=== PATIENT | female | born 1960 | race African-American/Black ===

== ENCOUNTER 2024-05-09 09:30 | Emergency (ER) | payer MEDICARE, OTHER ==
[~2024-05-09] VITALS: Ht 167.6 cm; Wt 55.0 kg
[2024-05-09 09:34] VITALS: O2SAT 98
[2024-05-09 10:05] LABS: BASOPHILS % 0.5 % (0.0-2.0); EOSINOPHILS % 2.7 % (0.0-5.0); HEMATOCRIT. 40.2 % (36.0-48.0); HEMOGLOBIN. 13.5 g/dL (12.0-16.0); LYMPHOCYTES % 19.4 % (20.0-50.0); MEAN CORPUSCULAR HEMOGLOBIN 31.1 pg (28.0-32.0); MEAN CORPUSCULAR HGB CONC 33.7 g/dL (31.0-37.0); MEAN CORPUSCULAR VOLUME 92.2 fL (81.0-99.0); MEAN PLATELET VOLUME 7.8 fl (7.4-10.4); MONOCYTES % 7.4 % (2.0-8.0); PLATELET 227 x1000/uL (130-400); RED BLOOD CELL COUNT 4.36 mill/uL (4.2-5.4); RED CELL DISTRIBUTION WIDTH 13.8 % (11.6-14.6); WHITE BLOOD COUNT 7.5 x1000/uL (4.5-11.0)
[2024-05-09 10:12] LABS: CHLORIDE 109 mEq/L (98-107); POTASSIUM 3.4 mEq/L (3.5-5.1); SODIUM 143 mEq/L (136-145)
[2024-05-09 10:13] LABS: CALCIUM 9.5 mg/dL (8.7-10.4); CARBON DIOXIDE 28 mEq/L (21-32)
[2024-05-09 10:18] LABS: CREATININE 0.8 mg/dL (0.6-1.0); GLUCOSE 126 mg/dL (70-105); UREA NITROGEN BLOOD 18 mg/dL (9-23)
[2024-05-09 10:22] LABS: TROPONIN I HIGH SENSITIVITY < 4 ng/L (3.0-34)
[2024-05-09] MEDS: ATROPINE SULFATE 1MG/ML VIAL IV ONE (13:18)
[2024-05-09 14:12] VITALS: BP 130/66; PULSE 60; RESP 16; TEMP 98
== END 2024-05-09 14:20 | disposition short-term general hospital (02) ==
LOC: ER 09:30 → EDBEDREQTM 12:07 → EDBEDREQ 12:07 → CANBEDREQ 14:15 → ER 14:20
DX: R00.1 Bradycardia, unspecified (principal); I10 Essential (primary) hypertension; I69.354 Hemiplegia and hemiparesis following cerebral infarction affecting left non-dominant side; Z20.822 Contact with and (suspected) exposure to COVID-19
CPT/HCPCS: 80048; 85025; 84484; 36415; 71045; 96374; 99285; 87426; J0461; Z7610 ×2

== ENCOUNTER 2024-05-14 18:54 | Emergency (ER) | payer MEDICARE, OTHER ==
[~2024-05-14] VITALS: Ht 167.6 cm; Wt 77.0 kg
[2024-05-14 18:56] VITALS: O2SAT 98
[2024-05-14 19:33] LABS: BASOPHILS % 0.8 % (0.0-2.0); EOSINOPHILS % 2.7 % (0.0-5.0); HEMATOCRIT. 39.4 % (36.0-48.0); HEMOGLOBIN. 13.2 g/dL (12.0-16.0); MEAN CORPUSCULAR HEMOGLOBIN 30.6 pg (28.0-32.0); MEAN CORPUSCULAR HGB CONC 33.4 g/dL (31.0-37.0); MEAN CORPUSCULAR VOLUME 91.4 fL (81.0-99.0); MONOCYTES % 7.8 % (2.0-8.0); NEUTROPHILS % 58.7 % (40.0-76.0); PLATELET 253 x1000/uL (130-400); PROTHROMBIN TIME 10.9 sec (9.6-11.0); RED BLOOD CELL COUNT 4.31 mill/uL (4.2-5.4); RED CELL DISTRIBUTION WIDTH 13.8 % (11.6-14.6); WHITE BLOOD COUNT 8.9 x1000/uL (4.5-11.0)
[2024-05-14 19:40] LABS: CHLORIDE 102 mEq/L (98-107); POTASSIUM 3.7 mEq/L (3.5-5.1); SODIUM 140 mEq/L (136-145)
[2024-05-14 19:41] LABS: CALCIUM 9.4 mg/dL (8.7-10.4); CARBON DIOXIDE 28 mEq/L (21-32)
[2024-05-14 19:44] LABS: TROPONIN I HIGH SENSITIVITY 9 ng/L (3.0-34)
[2024-05-14 20:42] LABS: CREATININE 0.8 mg/dL (0.6-1.0); ETHANOL BLOOD < 10 mg/dL (<10); GLUCOSE 80 mg/dL (70-105); UREA NITROGEN BLOOD 15 mg/dL (9-23)
[2024-05-14 21:50] VITALS: BP 131/69; PULSE 60; RESP 12
[2024-05-14] MEDS ORDERED: IOHEXOL-350 100 ML BOTTLE ONE (23:09)
== END 2024-05-14 22:32 | disposition short-term general hospital (02) ==
LOC: ER 18:54 → EDBEDREQ 20:41 → EDBEDREQTM 20:41 → ER 22:32
DX: J96.01 Acute respiratory failure with hypoxia (principal); G93.40 Encephalopathy, unspecified; I10 Essential (primary) hypertension; Z86.73 Personal history of transient ischemic attack (TIA), and cerebral infarction without residual deficits; R56.9 Unspecified convulsions
CPT/HCPCS: 80048; 80320; 83880; 85025; 85379; 85610; 84484; 36415; 71045; 70496; 70498; 70450; 93005; 99291; Q9967; G0480

== ENCOUNTER 2024-06-14 03:49 | Emergency (ER) | payer MEDICARE, OTHER ==
[~2024-06-14] VITALS: Ht 167.6 cm; Wt 75.0 kg
[2024-06-14 03:54] VITALS: O2SAT 95
[2024-06-14 04:15] LABS: BASOPHILS % 0.4 % (0.0-2.0); EOSINOPHILS % 1.9 % (0.0-5.0); HEMATOCRIT. 38.2 % (36.0-48.0); HEMOGLOBIN. 12.8 g/dL (12.0-16.0); LYMPHOCYTES % 32.4 % (20.0-50.0); MEAN CORPUSCULAR HEMOGLOBIN 31.2 pg (28.0-32.0); MEAN CORPUSCULAR HGB CONC 33.6 g/dL (31.0-37.0); MEAN CORPUSCULAR VOLUME 92.9 fL (81.0-99.0); MEAN PLATELET VOLUME 7.6 fl (7.4-10.4); MONOCYTES % 9.8 % (2.0-8.0); NEUTROPHILS % 55.5 % (40.0-76.0); PLATELET 219 x1000/uL (130-400); RED BLOOD CELL COUNT 4.11 mill/uL (4.2-5.4); RED CELL DISTRIBUTION WIDTH 14.5 % (11.6-14.6)
[2024-06-14 04:22] LABS: CHLORIDE 107 mEq/L (98-107); POTASSIUM 3.5 mEq/L (3.5-5.1); SODIUM 142 mEq/L (136-145)
[2024-06-14 04:23] LABS: CARBON DIOXIDE 30 mEq/L (21-32)
[2024-06-14 04:24] LABS: CALCIUM 9.6 mg/dL (8.7-10.4)
[2024-06-14 04:28] LABS: CREATININE 0.8 mg/dL (0.6-1.0); GLUCOSE 83 mg/dL (70-105); UREA NITROGEN BLOOD 15 mg/dL (9-23)
[2024-06-14 04:29] LABS: ETHANOL BLOOD < 10 mg/dL (<10); TROPONIN I HIGH SENSITIVITY 7 ng/L (3.0-34)
[2024-06-14 04:34] LABS: PARTIAL THROMBOPLASTIN TIME 26.2 sec (23.4-31.0); PROTHROMBIN TIME 11.6 sec (9.6-11.0)
[2024-06-14] MEDS: HYDRALAZINE 20MG/ML VIAL IV NR (06:00)
[2024-06-14 08:33] VITALS: BP 107/73; PULSE 60; RESP 16; TEMP 98.1
== END 2024-06-14 08:41 | disposition short-term general hospital (02) ==
LOC: ER 03:49
DX: R07.89 Other chest pain (principal); F14.90 Cocaine use, unspecified, uncomplicated; I10 Essential (primary) hypertension; J44.1 Chronic obstructive pulmonary disease with (acute) exacerbation; Z00.00 Encounter for general adult medical examination without abnormal findings; Z86.59 Personal history of other mental and behavioral disorders; Z86.73 Personal history of transient ischemic attack (TIA), and cerebral infarction without residual deficits
CPT/HCPCS: 80048; 80320; 83880; 85025; 85610; 85730; 84484; 36415; 71045; 93005; 96374; 99285; J0360; G0480